=== PATIENT | female | born 1945 | race Hispanic/Latino ===

== ENCOUNTER 2021-10-17 14:44 | Outpatient (CLI) | payer MEDICARE ==
--- NOTE | 2021-10-19 16:30 | Mammography Report ---
DIGITAL SCREENING MAMMOGRAM WITH CAD, 10/17/2021 CLINICAL INFORMATION / INDICATION: Routine screening mammography. Z12.31 TECHNIQUE: Digital bilateral 2D mammography was obtained in the craniocaudal and mediolateral obliqu e projections. This examination was interpreted with the benefit of Computer-Aided Detection analysis . COMPARISON: Prior mammogram 02/28/2018 FINDINGS: Breast Density: There are scattered areas of fibroglandular density. No dominant mass, suspicious calcifications, or architectural distortion in either breast. There has been no significant change compared with the prior examination. IMPRESSION: No mammographic evidence of malignancy. Follow up recommendation: Routine yearly screening mammogram. BI-RADS Category 1: NEGATIVE A "normal" or negative report should not discourage follow up or biopsy of a clinically significant f inding. A written summary of these findings will be mailed to the patient. The patient will be entered into a mammography reporting system which will generate a reminder letter for the patient's next appointmen t at the appropriate interval. The [employer] recommends yearly mammograms starting at age 40 and continuing as l ria as a woman is in good health. Breast MRI is recommended for women with an approximate 20-25% or greater lifetime risk of breast cancer, including women with a strong family history of breast or ova leobardo cancer or who have been treated for Hodgkin's disease. Signer Name: Shannon Jack MD Signed: 10/19/2021 4:26 PM Workstation Name: [id number]
== END 2021-10-17 14:45 | disposition home or self-care (01) ==
LOC: SPVWC 14:44
PROVIDERS: ATTEND Physician Assistant
DX: Z12.31 Encounter for screening mammogram for malignant neoplasm of breast (principal)
CPT/HCPCS: 77067